=== PATIENT | male | born 1935 | race Caucasian/White ===

== ENCOUNTER 2017-09-15 09:49 | Day surgery (SDC) | payer OTHER ==
[~2017-09-15 09:49] MED LIST: ACTOS45 MG PO; ASCORBIC ACID500 M1 PO; ASPIRIN81 M2 PO; AVODART0.5 MG PO; CELEBREX200 MG PO; CHROMIUM PIC1000 MCG PO; CINNAMON500 MG PO; FISH OIL 1,2001 EAC4 PO; HYDROCODON-ACE1 EAC7 PO; LEVEMIR FL100 UNIT/1 SC; LUMIGAN 0.50 DROP/22 LEFT EYE; MAGNESIUM400 M1 PO; METFORMIN HCL1000 M3 PO; MULTIPLE VITAM1 EACH PO; NEURONTIN300 MG PO; OMEPRAZOLE20 M2 PO; STIOLTO RESPIMAT4 GM IH; STOOL SOFTENER100 M1 PO; TOPICAINE113 GM TP; VICTOZA 2-0.6 MG/0.1 SC; VITAMIN B-6100 MG PO; VITAMIN D400 UNIT PO; ZOCOR40 MG PO; ZYRTEC10 M2 PO
[2017-09-18] MEDS ORDERED: [UNRECOGNIZED DRUG - REMARK] (10:11)
== END 2017-09-15 12:25 | disposition home or self-care (01) ==
LOC: PAIN 09:49 → SDC 10:45 → PAIN 10:45
PROVIDERS: Anesthesiology Pain Medicine
DX: M47.816 Spondylosis without myelopathy or radiculopathy, lumbar region (principal); M51.36 Other intervertebral disc degeneration, lumbar region; M99.83 Other biomechanical lesions of lumbar region; M17.11 Unilateral primary osteoarthritis, right knee; Z79.4 Long term (current) use of insulin; Z88.1 Allergy status to other antibiotic agents
CPT/HCPCS: 82948; J1030; S0020

== ENCOUNTER 2017-09-22 09:27 | Day surgery (SDC) | payer OTHER ==
[~2017-09-22] VITALS: Ht 167.6 cm; Wt 80.3 kg
[~2017-09-22 09:27] MED LIST changes: +[UNRECOGNIZED DRUG - REMARK]
== END 2017-09-22 11:32 | disposition home or self-care (01) ==
LOC: PAIN 09:27 → SDC 10:15 → PAIN 10:15
PROVIDERS: Anesthesiology Pain Medicine
DX: M47.816 Spondylosis without myelopathy or radiculopathy, lumbar region (principal); M51.16 Intervertebral disc disorders with radiculopathy, lumbar region; M48.061 Spinal stenosis, lumbar region without neurogenic claudication; M43.17 Spondylolisthesis, lumbosacral region; M17.11 Unilateral primary osteoarthritis, right knee; E11.9 Type 2 diabetes mellitus without complications; K21.9 Gastro-esophageal reflux disease without esophagitis; Z79.82 Long term (current) use of aspirin; Z79.891 Long term (current) use of opiate analgesic; Z79.4 Long term (current) use of insulin; Z88.1 Allergy status to other antibiotic agents
CPT/HCPCS: 82948; J1030; J2250; J3010; S0020

== ENCOUNTER 2017-10-06 08:28 | Day surgery (SDC) | payer OTHER ==
[~2017-10-06 08:28] MED LIST changes: +NOVOLOG PE100 UNITS/ SC
== END 2017-10-06 10:20 | disposition home or self-care (01) ==
LOC: PAIN 08:28 → SDC 09:30 → PAIN 09:30
PROVIDERS: Anesthesiology Pain Medicine
PROC: BR161ZZ Fluoroscopy of Lumbar Facet Joint(s) using Low Osmolar Contrast (ICD-10-PCS; principal; 2017-10-06)
PROC: 3E0T3TZ Introduction of Destructive Agent into Peripheral Nerves and Plexi, Percutaneous Approach (ICD-10-PCS; principal; 2017-10-06)
DX: M47.816 Spondylosis without myelopathy or radiculopathy, lumbar region (principal); M51.36 Other intervertebral disc degeneration, lumbar region; M48.061 Spinal stenosis, lumbar region without neurogenic claudication; M43.17 Spondylolisthesis, lumbosacral region; M54.16 Radiculopathy, lumbar region; M99.83 Other biomechanical lesions of lumbar region; E11.9 Type 2 diabetes mellitus without complications; Z79.84 Long term (current) use of oral hypoglycemic drugs; Z79.82 Long term (current) use of aspirin; Z88.1 Allergy status to other antibiotic agents
CPT/HCPCS: 82948; J1030; S0020

== ENCOUNTER 2017-10-16 08:21 | Day surgery (SDC) | payer OTHER ==
[~2017-10-16] VITALS: Ht 170.2 cm; Wt 74.8 kg
== END 2017-10-16 11:02 | disposition home or self-care (01) ==
LOC: PAIN 08:21 → SDC 09:00 → PAIN 11:02
PROVIDERS: Anesthesiology Pain Medicine
PROC: BR161ZZ Fluoroscopy of Lumbar Facet Joint(s) using Low Osmolar Contrast (ICD-10-PCS; principal; 2017-10-16)
PROC: 3E0T3TZ Introduction of Destructive Agent into Peripheral Nerves and Plexi, Percutaneous Approach (ICD-10-PCS; principal; 2017-10-16)
DX: M47.816 Spondylosis without myelopathy or radiculopathy, lumbar region (principal); M51.36 Other intervertebral disc degeneration, lumbar region; M99.83 Other biomechanical lesions of lumbar region; M43.17 Spondylolisthesis, lumbosacral region; E11.9 Type 2 diabetes mellitus without complications; Z79.4 Long term (current) use of insulin; M19.90 Unspecified osteoarthritis, unspecified site; K21.9 Gastro-esophageal reflux disease without esophagitis
CPT/HCPCS: 82948; J1030; J2250; J3010; S0020